=== PATIENT | male | born 1940 | race Caucasian/White ===

== ENCOUNTER 2019-03-15 08:52 | Day surgery (SDC) | payer OTHER ==
[2019-03-15] VITALS (8 sets, daily range): BP systolic 118–178; BP diastolic 73–97
[~2019-03-15] VITALS: Ht 170.2 cm; Wt 98.4 kg
[2019-03-15] MEDS ORDERED: normal saline 1,000 ML IV SCH (09:15)
[2019-03-15] MEDS ORDERED: LORazepam 0.5 MG tablet PO PRN (09:15)
[2019-03-15] MEDS ORDERED: diphenhydrAMINE 25mg capsule PO PRN (09:15)
[2019-03-15] MEDS ORDERED: ATOR40TA PO (09:19)
[2019-03-15] MEDS ORDERED: FLAXSEED OIL (09:31)
[2019-03-15] MEDS ORDERED: SUPER B COMPLEX (09:31)
[2019-03-15] MEDS ORDERED: KRIL500C PO (09:31)
[2019-03-15] MEDS ORDERED: OMEP40CA13 PO (09:31)
[2019-03-15] MEDS ORDERED: VITAMIN D3 (09:31)
[2019-03-15] MEDS ORDERED: LACT1CAP67 (09:31)
[2019-03-15] MEDS ORDERED: GLUC100017 (09:31)
[2019-03-15] MEDS ORDERED: UBID1CAP54 PO (09:31)
[2019-03-15] MEDS ORDERED: TERA10CA4 PO (09:31)
[2019-03-15] MEDS ORDERED: SAW PALMETTO (09:31)
[2019-03-15] MEDS ORDERED: TUMERIC (09:31)
[2019-03-15] MEDS ORDERED: LISI40TA4 PO (09:31)
[2019-03-15] MEDS ORDERED: midazolam 2 mg/2 ml injection ONE (11:24)
[2019-03-15] MEDS ORDERED: iohexol 350MG/ML 100ml bottle IV ONE (11:24)
[2019-03-15] MEDS ORDERED: LIDOcaine 1% (10mg/ml)w/preservative injection 20ml MDV ONE (11:24)
[2019-03-15] MEDS ORDERED: fentaNYL/PF 50MCG/1 ML 2ML syringe ONE (11:24)
[2019-03-15] MEDS ORDERED: normal saline 1000ml 1,000 ML IV SCH (12:25)
[2019-03-15] MEDS ORDERED: HYDROcodone/acetaminophen 10/325mg tab PO PRN (12:25)
[2019-03-15] MEDS ORDERED: OXAZEpam 15mg capsule PO PRN (12:25)
[2019-03-15] MEDS ORDERED: ondansetron/PF 4mg/2ml inj IV PRN (12:25)
[2019-03-15] MEDS ORDERED: HYDROcodone/acetaminophen 5mg/325mg tablet PO PRN (12:25)
[2019-03-15] MEDS ORDERED: proCHLORperazine 10 MG/2 ml inj IV PRN (12:25)
== END 2019-03-15 14:45 | disposition home or self-care (01) ==
LOC: SSTAY O 08:52
PROVIDERS: ATTEND Internal Medicine Interventional Cardiology
DX: R94.39 Abnormal result of other cardiovascular function study (principal); I25.10 Atherosclerotic heart disease of native coronary artery without angina pectoris; I10 Essential (primary) hypertension; E78.5 Hyperlipidemia, unspecified; Z87.891 Personal history of nicotine dependence; Z85.46 Personal history of malignant neoplasm of prostate; Z79.899 Other long term (current) drug therapy
CPT/HCPCS: 93005; 93458; 99152; 99153; C1769; J1644; J2001; J2250; J3010; J7030; Q0163; Q9967; A4620; A6258

== ENCOUNTER 2023-02-24 12:46 | Day surgery (SDC) | payer OTHER ==
[2023-02-20 12:22] LABS: BASOPHILS # (AUTO) 0.1 X10'3 (0-0.2); BASOPHILS % (AUTO) 0.9 % (0-1); EOSINOPHILS # (AUTO) 0.1 X10'3 (0-0.9); EOSINOPHILS % (AUTO) 1.1 % (0-6); HEMATOCRIT 46.3 % (42.0-52.0); HEMOGLOBIN 15.5 g/dl (14.0-17.9); LYMPHOCYTES # (AUTO) 0.8 X10'3 (1.1-4.8); LYMPHOCYTES % (AUTO) 14.5 % (21-51); MEAN CORPUSCULAR HEMOGLOBIN 32.7 PG (27.0-31.0); MEAN CORPUSCULAR HGB CONC 33.5 g/dL (33.0-36.5); MEAN CORPUSCULAR VOLUME 97.8 FL (78-98); MEAN PLATELET VOLUME 10.4 FL (7.4-10.4); MONOCYTES # (AUTO) 0.6 X10'3 (0-0.9); MONOCYTES % (AUTO) 9.8 % (2-12); NEUTROPHILS # (AUTO) 4.3 X10'3 (1.8-7.7); NEUTROPHILS % (AUTO) 73.7 % (42-75); PLATELET COUNT 180 X10'3 (140-440); RED BLOOD COUNT 4.74 X10'6 (4.70-6.10); RED CELL DISTRIBUTION WIDTH 13.8 % (11.5-14.5); WHITE BLOOD COUNT 5.8 X10'3 (4.5-11.0)
[2023-02-20 13:09] LABS: ANION GAP 9 (8-16); BLOOD UREA NITROGEN 18 MG/DL (7-18); BUN/CREATININE RATIO 18.4 (10.0-20.0); CALCIUM 8.8 MG/DL (8.5-10.1); CHLORIDE 100 MMOL/L (99-107); CHOL/HDL RATIO 2.4 (0.00-4.99); CHOLESTEROL 156 MG/DL (0-200); CREATININE 0.98 MG/DL (0.60-1.10); GLUCOSE 133 MG/DL (70-104); HDL CHOLESTEROL 66 MG/DL (35-60); LDL CHOLESTEROL 71 MG/DL (50-100); SODIUM 137 MMOL/L (135-145); TOTAL CARBON DIOXIDE 27.9 MMOL/L (24-32); TRIGLYCERIDES 235 MG/DL (20-135); eGFR 73 ML/MIN
[2023-02-20 13:14] LABS: POTASSIUM 3.9 MMOL/L (3.5-5.1)
[2023-02-20 13:25] LABS: APTT 25 SECONDS (22-32); PROTHROMBIN TIME 10.3 SECONDS (9.0-12.0)
[2023-02-24] VITALS (11 sets, daily range): BP systolic 106–156; BP diastolic 64–72; PULSE 18–68; RESP 7–18; TEMP 98.2; O2SAT 92–96
[~2023-02-24] VITALS: Ht 172.7 cm; Wt 93.7 kg
[~2023-02-24 12:46] MED LIST: ATOR40TA PO; FLAXSEED OIL; GLUC100017; KRIL500C PO; LACT1CAP77; LISI40TA13 PO; OMEP40CA21 PO; SAW PALMETTO; SUPER B COMPLEX; TERA10CA4 PO; TUMERIC; UBID1CAP54 PO; VITAMIN D3
[2023-02-24] MEDS ORDERED: diphenhydrAMINE 25mg capsule PO PRN (13:05)
[2023-02-24] MEDS ORDERED: LORazepam 0.5 MG tablet PO PRN (13:05)
[2023-02-24] MEDS ORDERED: normal saline 1,000 ML IV SCH (13:05)
[2023-02-24] MEDS ORDERED: ACET-3068 PO (13:39)
[2023-02-24] MEDS ORDERED: ALB0.5UD IH (13:40)
[2023-02-24] MEDS ORDERED: AMLO5TAB4 PO (13:41)
[2023-02-24] MEDS ORDERED: ASPI-1265 PO (13:42)
[2023-02-24] MEDS ORDERED: BICA50TA7 PO (13:43)
[2023-02-24] MEDS ORDERED: CHLO25TA10 PO (13:43)
[2023-02-24] MEDS ORDERED: ISOS30TA9 PO (13:46)
[2023-02-24] MEDS ORDERED: LOSA-418 PO (13:47)
[2023-02-24] MEDS ORDERED: LOP12.5T PO (13:48)
[2023-02-24] MEDS ORDERED: FLO0.4C PO (13:49)
[2023-02-24] MEDS ORDERED: NITR0.4T51 SL (13:50)
[2023-02-24] MEDS ORDERED: POTA-192 PO (13:50)
[2023-02-24] MEDS ORDERED: midazolam 1 mg/ML 2ml injection ONE (16:00)
[2023-02-24] MEDS ORDERED: fentaNYL/PF 50MCG/1 ML 2ML syringe ONE (16:01)
[2023-02-24] MEDS ORDERED: LIDOcaine 1% (10mg/ml)w/preservative inj. 20ml MDV ONE (16:01)
[2023-02-24] MEDS ORDERED: iohexol 350MG/ML 100ml bottle IV ONE (16:01)
[2023-02-24] MEDS ORDERED: verapamil 2.5 mg/ml inj IV ONE (16:09)
[2023-02-24] MEDS ORDERED: nitroGLYCERIN 500mcg/5mL D5W 5 ML IV ONE (16:09)
[2023-02-24] MEDS ORDERED: heparin 1,000unit/ml 10ml vial 10 ML ONE (16:09)
[2023-02-24] MEDS ORDERED: HYDROcodone/acetaminophen 5mg/325mg tablet PO PRN (17:10)
[2023-02-24] MEDS ORDERED: HYDROcodone/acetaminophen 10/325mg tab PO PRN (17:10)
== END 2023-02-24 19:15 | disposition home or self-care (01) ==
LOC: SSTAY O 12:46
PROVIDERS: ATTEND Student in an Organized Health Care Education/Training Program
DX: I25.10 Atherosclerotic heart disease of native coronary artery without angina pectoris (principal); I25.82 Chronic total occlusion of coronary artery; I10 Essential (primary) hypertension; E78.5 Hyperlipidemia, unspecified; Z87.891 Personal history of nicotine dependence; Z79.899 Other long term (current) drug therapy; Z85.46 Personal history of malignant neoplasm of prostate; Z95.5 Presence of coronary angioplasty implant and graft; Z79.01 Long term (current) use of anticoagulants
CPT/HCPCS: 36415; 80048; 80061; 85025; 85610; 85730; 93005; 93458; 99152; A6258; J1644; J2250; J3010; J3490; J7030; Q9967; A6402; C1894